=== PATIENT | male | born 1965 | race Caucasian/White ===

== ENCOUNTER → 2024-07-26 16:14 | Outpatient (REF) | payer OTHER, SELFPAY | LOC: RAD 16:14 | PROVIDERS: ATTENDING PHYSICIAN Nurse Practitioner Adult Health | DX: M25.562 Pain in left knee (principal); Z00.00 Encounter for general adult medical examination without abnormal findings; M25.551 Pain in right hip; M25.552 Pain in left hip | CPT/HCPCS: 72110; 73030; 73523; 73564 ==